=== PATIENT | male | born 1990 | race American Indian/Alaskan Native ===

== ENCOUNTER 2020-05-29 12:57 | Emergency (ER) | payer MEDICAID ==
--- NOTE | 2020-05-29 14:42 | EDM.PDOC ---
ED HPI GENERAL MEDICAL PROBLEM - General Chief Complaint: Skin Complaint Stated Complaint: INFECTION IN LEFT ARM Time Seen by Provider: 05/29/20 13:00 Source of Information: Reports: Patient History Limitations: Reports: No Limitations - History of Present Illness INITIAL COMMENTS - FREE TEXT/NARRATIVE: PtLinda presents to ER with complaints of erythema and discomfort to L anterior arm. He states that it started approx. 3 days ago and has been getting progressively worse. Denies any fever or chills. He denied any IV drug use when asked numerous times. Denies any erythema or rashes elsewhere. He states that he has been working on a [employer] home, and thinks he may have scratched or excoriated the area. Onset: Today Onset Date: 05/29/20 Location: Reports: Upper Extremity, Left, Generalized Left Elbow Pain Score (Numeric/FACES): 5 - Related Data Allergies Allergy/AdvReac Type Severity Reaction Status Date / Time Penicillins Allergy Rash Verified 05/29/20 13:10 Home Meds: Home Meds . [No Known Home Meds] 05/29/20 [History] Past Medical History - Past Health History Medical/Surgical History: Denies Medical/Surgical History Social & Family History - Tobacco Use Smoking Status *Q: Current Every Day Smoker Years of Tobacco use: 13 Packs/Tins Daily: 0.5 - Recreational Drug Use Recreational Drug Use: No ED ROS GENERAL - Review of Systems Review Of Systems: Comprehensive ROS is negative, except as noted in HPI. ED EXAM, SKIN/RASH Exam: See Below Exam Limited By: No Limitations General Appearance: Alert, WD/WN, No Apparent Distress Extremities: Other (11x12 cm area of cellulitis noted to L antecubital/forearm area. Area is inturated, and edematous, but no open lesions noted. Small hematoma noted in at the proximal end of the erythema. ) Course - Vital Signs Last Recorded V/S: Last Vital Signs Temp 37.7 C 05/29/20 13:00 Pulse 99 05/29/20 13:00 Resp 16 05/29/20 13:00 BP 140/74 05/29/20 13:00 Pulse Ox 100 05/29/20 13:00 Departure - Departure Time of Disposition: 13:30 Disposition: Home, Self-Care 01 Clinical Impression: Cellulitis - Discharge Information Instructions: Cellulitis, Adult, Sulfamethoxazole; Trimethoprim, SMX-TMP tablets, Probiotics Forms: ED Department Discharge Additional Instructions: Bactrim DS 1 twice daily for 10 days Keep arm elevated Recheck in clinic in 5-7 days. It may get a bit worse before the antibiotics start to fully work. Make sure you get 2 doses of bactrim in today. Sepsis Event Note (ED) - Evaluation Sepsis Screening Result: No Definite Risk - Focused Exam Vital Signs: Vital Signs Temp Pulse Resp BP Pulse Ox 05/29/20 13:00 37.7 C 99 16 140/74 100 - Assessment/Plan Plan: Bactrim DS 1 twice daily for 10 days Keep arm elevated Recheck in clinic in 5-7 days. It may get a bit worse before the antibiotics start to fully work. Make sure you get 2 doses of bactrim in today.
== END 2020-05-29 13:22 | disposition home or self-care (01) ==
LOC: VM.ED 12:57
DX: L03.114 Cellulitis of left upper limb (principal); F17.210 Nicotine dependence, cigarettes, uncomplicated; Z88.0 Allergy status to penicillin
CPT/HCPCS: 99282; 99283

== ENCOUNTER 2022-01-09 18:42 | Emergency (ER) | payer MEDICAID ==
[2022-01-09 19:32] LABS: ANION GAP 15.8 mmol/L (5-15); CHLORIDE,CL 106 mmol/L (98-107); SODIUM,NA 144 mmol/L (136-145)
[2022-01-09 21:17] LABS: THC SCREEN,URINE 50 NG/ML POSITIVE (NEGATIVE)
[2022-01-09 21:18] LABS: BARBITURATE SCREEN,URINE NEGATIVE (NEGATIVE); BENZODIAZEPINES SCREEN,URINE NEGATIVE (NEGATIVE); METHAMPHETAMINE SCREEN, URINE NEGATIVE (NEGATIVE)
[2022-01-09 21:19] LABS: BUPRENORPHINE SCREEN,URINE NEGATIVE (NEGATIVE)
== END 2022-01-09 19:20 | disposition left against medical advice (07) ==
LOC: VM.ED 18:42
DX: F19.90 Other psychoactive substance use, unspecified, uncomplicated (principal); Z88.0 Allergy status to penicillin; Z87.891 Personal history of nicotine dependence
CPT/HCPCS: 36415; 80053; 80305-QW; 82550; 85025; 86140; 99284

== ENCOUNTER 2022-05-21 16:06 | Emergency (ER) | payer MEDICAID ==
[2022-05-21 16:45] LABS: BUPRENORPHINE,URINE NEGATIVE (NEGATIVE); MARIJUANA,URINE POSITIVE (NEGATIVE)
[2022-05-21] MEDS: Ibuprofen 200 MG Tab PO PRN (16:45)
[2022-05-21 16:46] LABS: METHYLENEDIOXYMETHAMP,UR NEGATIVE (NEGATIVE); PHENCYCLIDINE,URINE NEGATIVE (NEGATIVE)
== END 2022-05-21 17:15 ==
LOC: VM.ED 16:06
DX: F11.10 Opioid abuse, uncomplicated (principal); F15.10 Other stimulant abuse, uncomplicated; F19.10 Other psychoactive substance abuse, uncomplicated; Z88.0 Allergy status to penicillin
CPT/HCPCS: 80305-QW; 99284; A9270-GY

== ENCOUNTER 2024-02-18 22:05 | Emergency (ER) | payer MEDICAID ==
[2024-02-18] MEDS: Take Home: Cephalexin 500 MG Cap, 6 Cap Pack PO ONE (22:32)
== END 2024-02-18 22:40 | disposition home or self-care (01) ==
LOC: VM.ED 22:05
DX: L73.9 Follicular disorder, unspecified (principal); Z88.0 Allergy status to penicillin
CPT/HCPCS: 99282; A9270